=== PATIENT | male | born 1960 | race Two or more races ===

== ENCOUNTER → 2024-07-07 | Outpatient (CLI) | payer MEDICAID, SELFPAY ==
--- NOTE | 2024-07-07 12:16 | XR_ITS ---
Examination: PA lateral chest 2 views TECHNIQUE: Upright PA lateral chest 2 views Exam date and time: July 07, 2024 1243 hours INDICATIONS: Coughing beginning 4 days ago. FINDINGS: Normal heart size. Lungs are clear. Moderate osteopenia IMPRESSION: No pneumonia or pulmonary edema
== END | disposition home or self-care (01) ==
PROVIDERS: PCP Nurse Practitioner Family; Referring Provider Nurse Practitioner Family; Visit Provider Nurse Practitioner Family
DX: R05.9 Cough, unspecified (principal)
CPT/HCPCS: 71046

== ENCOUNTER → 2024-07-07 | Outpatient (BNVA) | payer MEDICAID, SELFPAY | END | disposition home or self-care (01) | PROVIDERS: PCP Nurse Practitioner Family; Referring Provider Nurse Practitioner Family; Visit Provider Nurse Practitioner Family | DX: J06.9 Acute upper respiratory infection, unspecified (principal); Z13.220 Encounter for screening for lipoid disorders | CPT/HCPCS: 87804; 87811; 99215 ==

== ENCOUNTER → 2024-07-16 | Outpatient (BNVA) | payer MEDICAID, SELFPAY | END | disposition home or self-care (01) | PROVIDERS: PCP Nurse Practitioner Family; Referring Provider Nurse Practitioner Family; Visit Provider Nurse Practitioner Family | DX: Z00.01 Encounter for general adult medical examination with abnormal findings (principal); R73.03 Prediabetes; E78.5 Hyperlipidemia, unspecified; Z71.2 Person consulting for explanation of examination or test findings | CPT/HCPCS: 93005; 99215 ==

== ENCOUNTER → 2024-10-23 | Outpatient (BNVA) | payer MEDICAID, SELFPAY | END | disposition home or self-care (01) | PROVIDERS: PCP Nurse Practitioner Family; Referring Provider Nurse Practitioner Family; Visit Provider Nurse Practitioner Family | DX: Z71.2 Person consulting for explanation of examination or test findings (principal); E78.5 Hyperlipidemia, unspecified; R73.03 Prediabetes | CPT/HCPCS: 99212; G0463 ==